=== PATIENT | female | born 1970 | race Caucasian/White ===

== ENCOUNTER 2023-01-21 06:12 | Day surgery (SDC) | payer OTHER ==
[~2023-01-21] VITALS: Ht 246.4 cm; Wt 77.1 kg
[2023-01-21] MEDS ORDERED: fentaNYL citrate 0.05 MG/ML VIAL ONE (07:27)
[2023-01-21] MEDS ORDERED: LIDOCAINE 2% 100 MG/5 ML UJET TP ONE (07:27)
[2023-01-21] MEDS ORDERED: fentaNYL citrate 0.05 MG/ML VIAL IVP ONE (08:15)
== END 2023-01-21 08:56 | disposition home or self-care (01) ==
LOC: MDS 06:12 → MMU 06:28 → MDS 08:56
PROVIDERS: ATTEND Internal Medicine Gastroenterology
DX: Z12.11 Encounter for screening for malignant neoplasm of colon (principal); K57.30 Diverticulosis of large intestine without perforation or abscess without bleeding; E78.00 Pure hypercholesterolemia, unspecified
CPT/HCPCS: 45378; J3010